=== PATIENT | female | born 2000 | race Caucasian/White ===

== ENCOUNTER → 2021-02-10 | Outpatient (CLI) | payer BC, OTHER | LOC: US 08:00 | DX: R10.11 Right upper quadrant pain (principal) | CPT/HCPCS: 76705 ==

== ENCOUNTER → 2021-03-14 | Outpatient (CLI) | payer BC ==
[~2021-03-14] MED LIST: CARAFATE 1 GM TA1 GM PO; FAMOTIDINE20 MG PO; METOPROLOL SUCC25 MG PO; NORETHIND-ETH1 EACH PO
== END ==
LOC: NM 09:50
DX: R10.11 Right upper quadrant pain (principal)
CPT/HCPCS: 78226; A9537

== ENCOUNTER → 2021-04-01 | Day surgery (SDC) | payer BC | END | disposition home or self-care (01) | LOC: OR 06:09 | DX: R10.13 Epigastric pain (principal); R11.0 Nausea; Z20.822 Contact with and (suspected) exposure to COVID-19; E66.01 Morbid (severe) obesity due to excess calories; K21.9 Gastro-esophageal reflux disease without esophagitis; R10.11 Right upper quadrant pain | CPT/HCPCS: 84703; J2704; J7030 ==